=== PATIENT | female | born 1960 | race Two or more races ===

== ENCOUNTER → 2017-12-30 | Outpatient (CLI) | payer OTHER | END | disposition home or self-care (01) | LOC: MAMO-SONO 10:31 | DX: N64.4 Mastodynia (principal) ==

== ENCOUNTER 2018-06-14 13:47 | Outpatient (CLI) | payer OTHER | END 2018-06-14 13:53 | disposition home or self-care (01) | LOC: MAMO-SONO 13:47 | DX: N60.11 Diffuse cystic mastopathy of right breast (principal); N60.12 Diffuse cystic mastopathy of left breast ==

== ENCOUNTER 2018-07-12 13:58 | Outpatient (CLI) | payer OTHER | END 2018-07-12 14:26 | disposition home or self-care (01) | LOC: SONOGRAMA 13:58 | DX: N83.02 Follicular cyst of left ovary (principal) ==

== ENCOUNTER 2019-06-11 10:47 | Emergency (ER) | payer OTHER ==
[~2019-06-11] VITALS: Ht 170.2 cm; Wt 86.2 kg
== END 2019-06-11 18:19 | disposition home or self-care (01) ==
LOC: ER 10:47
DX: M54.5 Low back pain (principal); R10.31 Right lower quadrant pain